=== PATIENT | male | born 1940 | race Caucasian/White ===

== ENCOUNTER 2017-02-18 11:13 | Emergency (ER) | payer OTHER ==
[~2017-02-18] VITALS: Ht 165.1 cm; Wt 86.0 kg
[2017-02-18 11:15] VITALS: Ht 165.1 cm; Wt 86.0 kg
[2017-02-18] MEDS ORDERED: KETOROLAC 30 MG INJ IM STA (11:31)
[2017-02-18] MEDS ORDERED: HYDROCODONE/APAP (5/325) TAB PO ONE (12:00)
--- NOTE | 2017-02-18 12:32 | RADRPT ---
PROCEDURE: XR Knee. CLINICAL INDICATION: Knee pain TECHNIQUE: Three views of the right knee are available for review. COMPARISON: None available FINDINGS: Marginal osteophyte formation and subchondral sclerosis seen at all 3 compartments. Mild narrowing is seen at the lateral femorotibial compartment. Mild to moderate narrowing is seen at the medial a nd mild narrowing of the patellofemoral compartment. There is evidence of chondrocalcinosis in the region of the menisci and calcific tendonitis in the popliteus fossa. No acute osseous abnormality. Large sized joint effusion. There is prepatellar soft tissue swelling. IMPRESSION: 1. No acute osseous abnormality. 2. 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 3. Evidence of chondrocalcinosis and calcific tendonitis either degenerative in nature or may be se en with superimposed CPPD arthropathy. 4. Large joint effusion and prepatellar soft tissue swelling. RPTAT: PP .Alban Jones MD, MD Date Time Electronically viewed and signed by .Alban Jones MD, on 02/18/2017 12:32 .d/
[2017-02-18] MEDS ORDERED: TRAM-40 PO (12:47)
--- NOTE | 2017-02-18 12:54 | ERD ---
ER Documentation Chief Complaint Date/Time DATE: 02/18/17 TIME: 12:52 Chief Complaint right knee pain/injury HPI 76-year-old male presents for right knee pain worsening over the last 2-3 weeks. He denies any history of trauma, fevers, restricted range of motion or weakness. He describes as similar to several years ago we had to have it drained. He has a history of hypertension but does not go to the doctor regularly. ROS All systems reviewed and are negative except as per history of present illness. Medications Home Meds Active Scripts Tramadol Hcl* (Ultram*) 50 Mg Tablet, 50 MG PO Q6H Y for PAIN, #20 TAB Prov:EVANGELINA ARGUETA MD 02/18/17 Allergies Allergies: Coded Allergies: No Known Allergy (Unverified , 02/18/17) PMhx/Soc History of Surgery: Yes (Right Shoulder Surgery) Anesthesia Reaction: No Hx Neurological Disorder: No Hx Respiratory Disorders: No Hx Cardiac Disorders: Yes (HTN) Hx Psychiatric Problems: No Hx Miscellaneous Medical Probl: No Hx Alcohol Use: No Hx Substance Use: No Hx Tobacco Use: No Smoking Status: Never smoker Physical Exam Vitals Vital Signs Date Time Temp Pulse Resp B/P Pulse Ox O2 Delivery O2 Flow Rate FiO2 02/18/17 11:15 99.4 97 19 170/86 98 Physical Exam Const: [] Alert, not ill-appearing. Head: Atraumatic Eyes: Normal Conjunctiva ENT: Normal External Ears, Nose and Mouth. Neck: Full range of motion..~ No meningismus. Resp: Clear to auscultation bilaterally Cardio: Regular rate and rhythm, no murmurs Abd: Soft, non tender, non distended. Normal bowel sounds Skin: No petechiae or rashes Back: No midline or flank tenderness Ext: No cyanosis, or edema. Generalized tenderness on the right knee joint without warmth, erythema or significant effusion. Is no deformities. There is no calf swelling or Homans sign Neur: Awake and alert Psych: Normal Mood and Affect Results 24 hrs Current Medications Medications (Trade) Dose Ordered Sig/Raj Route PRN Reason Start Time Stop Time Status Last Admin Dose Admin Ketorolac Tromethamine (Toradol) 30 mg ONCE STAT IM 02/18/17 11:31 02/18/17 11:33 DC 02/18/17 11:44 Acetaminophen/ Hydrocodone Bitart (Brun[place] (5/325)) 1 tab ONCE ONCE PO 02/18/17 12:00 02/18/17 12:01 DC 02/18/17 11:44 Procedures/MDM X-ray right knee 3V Interpreted by me: Bones: No fracture Joints: No dislocation Foreign body: None. Impression-tricompartmental degenerative changes of the right knee. Patient was given [place] 5 mg by mouth placed in right knee Moise bandage. Patient presents with right knee pain and signs of osteoarthritis without evidence or signs or symptoms to suggest septic arthritis, fracture, dislocation , DVT, cellulitis. He will be treated with tramadol and instructions for continuation of ibuprofen, and orthopedic and primary care follow-up. He should return for fevers, redness, new worsening symptoms or with primary care and orthopedist as directed. The patient was stable with no new complaints during the ER course. Clinically, there is no current evidence to suggest meningitis, sepsis, acute abdomen, pneumonia, acute coronary syndrome, pulmonary embolism, or any other emergent condition appearing to require further evaluation or hospitalization. The patient should certainly return for any new or worsening symptoms per the aftercare instructions. They should otherwise follow-up with her primary care doctor for reevaluation this week. Patient was noted to have elevated blood pressure despite taking his blood pressure medicine at home. Patient will referred to his primary doctor for further evaluation and management. Patient shows no signs or symptoms of current endorgan damage or hypertensive emergency. Departure Diagnosis: Primary Impression: Knee pain Laterality: right Chronicity: unspecified Qualified Code: M25.561 - Right knee pain, unspecified chronicity Additional Impression: Hypertension Condition: Stable Patient Instructions: High Blood Pressure (Hypertension), Knee Pain, Uncertain Cause, Osteoarthritis Referrals: JIGNA BECKER MD, HRAIR E MD Additional Instructions: X RAY DICE TIENE ARTRITIS . Va al howard doctor/ specialista para mas evaluacon en el proximo semana. posiblemente necesita autorizado de howard doctor primario para specialista. Regresa para fiebre, o mas o nueva simptomas. EVANGELINA ARGUETA MD Feb 18, 2017 12:54
== END 2017-02-18 13:00 | disposition home or self-care (01) ==
LOC: FTE 11:13
DX: M25.561 Pain in right knee (principal); I10 Essential (primary) hypertension
CPT/HCPCS: 73562; 96372; 99284; J1885